=== PATIENT | male | born 1990 | race Caucasian/White ===

== ENCOUNTER → 2022-06-08 | Outpatient (CLI) | payer BC, SELFPAY ==
--- NOTE | 2022-06-08 07:14 | MRI_ITS ---
STUDY: MRI LEFT KNEE REASON FOR EXAM: Male, 32 years old. Quadriceps pain/strain. History of patellar tendon repair in November 2021. TECHNIQUE: Standardized fat and water weighted pulse sequences were obtained in all 3 orthogonal planes. COMPARISON: None. FINDINGS: Normal medial meniscus. Normal hyaline cartilage of the medial femorotibial compartment. Normal medial femoral condyle and tibial plateau. Normal medial collateral ligamentous complex (MCL). Normal distal semimembranosus, gracilis and semitendinosus tendons. Normal lateral meniscus. Normal hyaline cartilage of the lateral femorotibial compartment. Normal lateral femoral condyle and tibial plateau. Normal proximal tibiofibular articulation. Normal lateral collateral (fibular) ligament. Normal popliteus tendon. Normal biceps femoris tendon. Normal anterior cruciate ligament (ACL). Normal posterior cruciate ligament (PCL). Normal congruent patellofemoral articulation. Normal hyaline cartilage of the patellofemoral compartment. Normal medial and lateral patellar retinaculum. Postsurgical changes with metallic artifact in the distal quadriceps tendon. Marked thickening of the distal quadriceps tendon with focal high signal intensity anteriorly adjacent to the insertion side at the superior pole of the patella (axial series 2 images 2-8, sagittal series 4 images 12-17). Changes of patellar tendon repair with multiple metallic and surgical artifact and substantial thickening of the entire patellar tendon. High-grade central partial tear of the patellar tendon at its origin occupying approximately 80% of the tendon thickness (sagittal series 4 images 11-17). Edema within Hoffa''s fat pad sagittal series 4 images 13-16).. Small joint effusion with large dissecting popliteal cyst which has ruptured proximally with posterior compartmental interstitial edema (axial series 2 images 3-26). Prepatellar subcutaneous soft tissue edema (sagittal series 4 image 16). The otherwise visualized osseous structures are unremarkable. MRI/Lower Ext Joint Only (Routine) IMPRESSION: Postsurgical changes of distal quadriceps tendon and patellar tendon repair with metallic artifact and sutures. Marked thickening of the distal quadriceps tendon with focal high signal intensity anteriorly adjacent to the quadriceps insertion site at the superior pole of the patella. No full-thickness tear is present. Marked diffuse thickening of the entire patellar tendon. High-grade central partial tear of the proximal patellar tendon occupying approximately 80% of the tendon thickness at this site. No full-thickness tear is present. Prepatellar subcutaneous soft tissue edema. Small joint effusion. Large dissecting popliteal cyst which has ruptured proximally with resulting posterior compartmental interstitial edema. Electronically Signed: Alexander Briones, at 11:33 EST ,
== END | disposition home or self-care (01) ==
LOC: MRI 07:11
PROVIDERS: PCP Family Medicine; Referring Provider Student in an Organized Health Care Education/Training Program; Visit Provider Student in an Organized Health Care Education/Training Program
DX: S76.112D Strain of left quadriceps muscle, fascia and tendon, subsequent encounter (principal)
CPT/HCPCS: 73721